=== PATIENT | female | born 1940 | race Caucasian/White ===

== ENCOUNTER 2018-06-15 08:00 | Emergency (ER) | payer OTHER, BC ==
[~2018-06-15] VITALS: Ht 154.9 cm; Wt 78.0 kg
[~2018-06-15 08:00] MED LIST: ACYCLOVIR400 MG; AMLODIPINE BESYL5 MG; ASPIR 8181 MG; CLEOCIN 30300 MG/50; CYMBALTA30 MG; HYDROCHLOROTHIA25 MG; PRED FORTE1 ML; PROTONIX40 MG PO
== END 2018-06-15 09:50 | disposition home or self-care (01) ==
LOC: ER 08:00
DX: S40.012A Contusion of left shoulder, initial encounter (principal); W23.0XXA Caught, crushed, jammed, or pinched between moving objects, initial encounter; Y93.89 Activity, other specified; Y92.098 Other place in other non-institutional residence as the place of occurrence of the external cause; Y99.8 Other external cause status

== ENCOUNTER 2019-11-15 14:04 | Emergency (ER) | payer OTHER, BC ==
[~2019-11-15] VITALS: Ht 165.1 cm; Wt 81.6 kg
== END 2019-11-15 19:00 | disposition home or self-care (01) ==
LOC: ER 14:04
DX: R55 Syncope and collapse (principal); R42 Dizziness and giddiness

== ENCOUNTER 2021-01-31 20:53 | Emergency (ER) | payer OTHER, BC ==
[~2021-01-31] VITALS: Ht 154.9 cm; Wt 73.9 kg
[2021-01-31] MEDS ORDERED: GABAPENTIN300 M2 PO (22:44)
[2021-01-31] MEDS ORDERED: FAMCICLOVIR500 MG PO (22:44)
== END 2021-01-31 23:28 | disposition home or self-care (01) ==
LOC: ER 20:53
DX: B02.9 Zoster without complications (principal)

== ENCOUNTER 2021-02-27 13:21 | Inpatient (IN) | payer OTHER, BC ==
[~2021-02-27] VITALS: Ht 162.6 cm; Wt 63.5 kg
[~2021-02-27 13:21] MED LIST changes: +FAMCICLOVIR500 MG PO; +GABAPENTIN300 M2 PO
[2021-03-07] MEDS ORDERED: TIMOLOL MALEATE5 M4 OP (08:20)
[2021-03-07] MEDS ORDERED: RAMIPRIL10 MG (08:20)
[2021-03-07] MEDS ORDERED: ROSUVASTATIN CA10 MG (08:20)
== END 2021-03-07 18:52 | disposition home or self-care (01) | DRG 689 ==
LOC: ER 13:21 → SEC-K 22:01 → MEDI 02-28 00:22 → SEC-K 02-28 01:53 → MEDJ 02-28 07:56 → MEDI 02-28 15:05
PROVIDERS: ADMIT Internal Medicine; ATTEND Internal Medicine
PROC: BW2110Z Computerized Tomography (CT Scan) of Abdomen and Pelvis using Low Osmolar Contrast, Unenhanced and Enhanced (ICD-10-PCS; principal; 2021-02-27)
PROC: B24BYZZ Ultrasonography of Heart with Aorta using Other Contrast (ICD-10-PCS; 2021-03-02)
DX: N39.0 Urinary tract infection, site not specified (principal); A41.51 Sepsis due to Escherichia coli [E. coli]; R65.20 Severe sepsis without septic shock; E86.0 Dehydration; E87.6 Hypokalemia

== ENCOUNTER 2022-09-09 21:36 | Inpatient (IN) | payer OTHER, BC ==
[~2022-09-09] VITALS: Ht 162.6 cm; Wt 81.6 kg
[~2022-09-09 21:36] MED LIST changes: +RAMIPRIL10 MG; +ROSUVASTATIN CA10 MG; +TIMOLOL MALEATE5 M4 OP
[2022-09-09] MEDS ORDERED: AVAPRO300 MG PO (22:05)
== END 2022-09-12 20:25 | disposition home or self-care (01) | DRG 395 ==
LOC: ER 21:36 → MEDI 09-11 10:13 → SEC-K 09-11 10:13 → MEDI 09-11 11:12
PROVIDERS: ADMIT Internal Medicine; ATTEND Internal Medicine
PROC: BW24ZZZ Computerized Tomography (CT Scan) of Chest and Abdomen (ICD-10-PCS; 2022-09-10)
PROC: 0DC28ZZ Extirpation of Matter from Middle Esophagus, Via Natural or Artificial Opening Endoscopic (ICD-10-PCS; principal; 2022-09-11)
PROC: 0DB38ZX Excision of Lower Esophagus, Via Natural or Artificial Opening Endoscopic, Diagnostic (ICD-10-PCS; 2022-09-11)
PROC: 0DB78ZX Excision of Stomach, Pylorus, Via Natural or Artificial Opening Endoscopic, Diagnostic (ICD-10-PCS; 2022-09-11)
DX: T18.128A Food in esophagus causing other injury, initial encounter (principal)

== ENCOUNTER 2022-10-11 12:22 | Emergency (ER) | payer OTHER, BC ==
[~2022-10-11] VITALS: Ht 157.5 cm; Wt 74.8 kg
[~2022-10-11 12:22] MED LIST changes: +AVAPRO300 MG PO
== END 2022-10-11 16:24 | disposition home or self-care (01) ==
LOC: ER 12:22
PROVIDERS: General Practice
DX: R42 Dizziness and giddiness (principal); Z20.822 Contact with and (suspected) exposure to COVID-19
CPT/HCPCS: 36415; 70450; 96365; 96366; 99284; J3490; J7030

== ENCOUNTER 2023-05-01 16:48 | Outpatient (CLI) | payer OTHER ==
[2023-05-01 17:49] LABS: CREATININE SERUM 1.04 mg/dL (0.55-1.02)
== END 2023-05-01 17:00 | disposition home or self-care (01) ==
LOC: LAB 16:48
PROVIDERS: ATTEND Radiology Diagnostic Radiology
DX: R41.3 Other amnesia (principal)

== ENCOUNTER 2023-05-03 09:34 | Outpatient (CLI) | payer OTHER | END 2023-05-03 12:42 | disposition home or self-care (01) | LOC: MRI 09:34 | PROVIDERS: ATTEND Psychiatry & Neurology Pain Medicine | DX: R41.3 Other amnesia (principal); R26.9 Unspecified abnormalities of gait and mobility | CPT/HCPCS: 70553 ==

== ENCOUNTER 2023-05-29 09:18 | Outpatient (CLI) | payer OTHER | END 2023-05-29 09:19 | disposition home or self-care (01) | LOC: NUCLEAR 09:18 | PROVIDERS: ATTEND Internal Medicine | DX: I50.30 Unspecified diastolic (congestive) heart failure (principal) | CPT/HCPCS: 78472; A9538 ==